=== PATIENT | female | born 1985 | race Caucasian/White ===

== ENCOUNTER 2022-11-29 05:07 | Emergency (ER) | payer MEDICAID ==
[2022-11-29 06:30] LABS: CORONAVIRUS COVID-19 NAA NEGATIVE (NEGATIVE)
== END 2022-11-29 07:02 | disposition home or self-care (01) ==
LOC: JP.ED 05:07
DX: I10 Essential (primary) hypertension (principal); Z20.822 Contact with and (suspected) exposure to COVID-19
CPT/HCPCS: 0241U; 36415; 80048; 85025; 86140; 99284; 99283

== ENCOUNTER 2024-10-20 16:31 | Emergency (ER) | payer BC, MEDICAID | END 2024-10-20 18:25 | disposition home or self-care (01) | LOC: JP.ED 16:31 | DX: B34.9 Viral infection, unspecified (principal); J02.9 Acute pharyngitis, unspecified; I10 Essential (primary) hypertension; Z79.899 Other long term (current) drug therapy | CPT/HCPCS: 87428-QW; 99283 ==